=== PATIENT | male | born 1940 | race Caucasian/White ===

== ENCOUNTER 2021-07-12 00:30 | Outpatient (REF) | payer MEDICARE, SELFPAY ==
[2021-07-12 07:31] LABS: Hematocrit 31.4 % (42.0-52.0); Mean Corpuscular HGB Conc 31.8 g/dl (31.0-36.0); Mean Corpuscular Hemoglobin 32.7 pg (27.0-33.0); Mean Corpuscular Volume 102.6 fL (80.0-98.0); Platelet Count 203 X10*3/uL (160-400); Red Blood Count 3.06 X10*6/uL (4.60-5.80); White Blood Count 8.8 X10*3/uL (4.8-10.8)
[2021-07-12 09:01] LABS: Anion Gap 21 (12-20); Blood Urea Nitrogen 22 mg/dL (9-16); Calcium 8.4 mg/dL (8.4-10.2); Carbon Dioxide 26 mmol/L (22-29); Chloride 86 mmol/L (96-108); Estimated Glomerular Filt Rate 13; Glucose Random 80 mg/dL (60-115); Potassium 3.7 mmol/L (3.3-5.1); Sodium 129 mmol/L (135-145)
== END 2021-07-12 00:31 | disposition home or self-care (01) ==
LOC: HO.MMNH1L 00:30
PROVIDERS: Visit Provider Family Medicine
DX: I48.91 Unspecified atrial fibrillation (principal); N18.6 End stage renal disease; I50.9 Heart failure, unspecified
CPT/HCPCS: 36415; 80048; 85027

== ENCOUNTER 2021-08-23 00:49 | Outpatient (REF) | payer SELFPAY | END 2021-08-23 00:50 | disposition home or self-care (01) | LOC: HO.MMNH1L 00:49 | PROVIDERS: Visit Provider Family Medicine | DX: Z13.89 Encounter for screening for other disorder (principal) ==